=== PATIENT | female | born 1960 | race Caucasian/White ===

== ENCOUNTER 2017-01-05 12:43 | Emergency (ER) | payer BC ==
[~2017-01-05 12:43] MED LIST: ALPRAZOLAM PO; ATENOLOL PO; HCTZ PO; JANUVIA25 MG PO; LEVEMIR SUBQ; METFORMIN HCL500 M1 PO; NOVOLOG SUBQ; [UNRECOGNIZED DRUG - REMARK]
== END 2017-01-05 14:00 | disposition home or self-care (01) ==
LOC: CFTX 12:43
DX: S05.01XA Injury of conjunctiva and corneal abrasion without foreign body, right eye, initial encounter (principal); H10.021 Other mucopurulent conjunctivitis, right eye; F41.9 Anxiety disorder, unspecified; J45.909 Unspecified asthma, uncomplicated; I10 Essential (primary) hypertension; F17.210 Nicotine dependence, cigarettes, uncomplicated; X58.XXXA Exposure to other specified factors, initial encounter; Y92.9 Unspecified place or not applicable
CPT/HCPCS: 99282; 99283